=== PATIENT | female | born 2000 | race Caucasian/White ===

== ENCOUNTER → 2022-03-11 16:51 | Outpatient (CLI) | payer OTHER, SELFPAY | PROVIDERS: Visit Provider Obstetrics & Gynecology | DX: N39.0 Urinary tract infection, site not specified (principal); B96.29 Other Escherichia coli [E. coli] as the cause of diseases classified elsewhere | CPT/HCPCS: 87086; 87088; 87186 ==

== ENCOUNTER → 2022-05-23 14:14 | Outpatient (CLI) | payer OTHER, SELFPAY ==
--- NOTE | 2022-05-23 14:21 | US_ITS ---
FINAL REPORT CLINICAL HISTORY: 20 week anatomy scan FINDINGS: There is a single live intrauterine gestation. Presentation is cephalic. The cervix is closed and measures 3.1. Placenta is anterior, grade 1. movement is noted. heart rate is 147 beats per minute Three-vessel cord with satisfactory umbilical cord insertion. Four-chamber heart is noted. brain and ventricles are unremarkable. Chest and diaphragm are unremarkable. ABDOMEN: Both kidneys are unremarkable. Stomach is unremarkable. SPINE: No anomalies identified. Both arms and legs noted. AMNIOTIC FLUID: Appropriate amount. MEASUREMENTS: ULTRASOUND AGE: 20 weeks 3 days. GESTATION AGE: 20 weeks 2 days. ESTIMATED WEIGHT: 366 g GROWTH PERCENTILE: 64 % BPD: 4.72 corresponding 2 20 weeks 2 days. OFD: 6.19 cm corresponding to 20 weeks 6 days. HC: 17.29 cm corresponding to 19 weeks 6 days. AC: 15.83 cm corresponding to 21 weeks 0 days. FL: 3.33 cm corresponding to 20 weeks 3 days. CEREBELLUM: 1.98 cm corresponding to 20 weeks 2 days. HUMERUS: 3.28 cm corresponding to 20 weeks 1 day. HC/AC: 1.09 CI: 76% FL/BPD: 71% FL/AC: 21% IMPRESSION: Single living IUP with an ultrasound age of 20 weeks 3 days. Reviewed, Interpreted and Dictated by Roel Camacho III, MD Transcribed by Gertrudis Martinez Authenticated and [facility]
== END ==
PROVIDERS: PCP Obstetrics & Gynecology; Visit Provider Obstetrics & Gynecology
DX: Z34.90 Encounter for supervision of normal pregnancy, unspecified, unspecified trimester (principal); Z3A.20 20 weeks gestation of pregnancy
CPT/HCPCS: 76811

== ENCOUNTER 2022-06-04 07:03 | Outpatient (CLI) | payer OTHER, SELFPAY ==
[2022-06-04 07:40] VITALS: BP 130/77; PULSE 81; RESP 20; TEMP 36.7; O2SAT 98; BMI 42.3
[2022-06-04 07:58] LABS: Microscopic, Urine URINE MICROSCOPIC (MICROSCOPIC)
[2022-06-04 07:59] LABS: Appearance,Urine SL CLOUDY (Clear); Bilirubin,Urine Negative (Negative); Blood, Urine Negative (Negative); Color,Urine YELLOW (Yellow); Glucose,Urine (UA) Negative (Negative); Ketones,Urine 1+ (Negative); Leukocyte Esterase,Urine TRACE (Negative); Nitrate,Urine Negative (Negative); Protein,Urine Negative (Negative)
[2022-06-04 08:20] LABS: Bacteria,Urine Trace /lpf; Squamous Epithelial Cell,Urine Occasional #/hpf (0-5); WBC,Urine Occasional #/hpf (0-3)
--- NOTE | 2022-06-04 08:43 | EXP.ACUTE.PN ---
Subjective *Date: 06/04/22 *Time: 08:43 Interval history: She arrived at 7 AM this morning with severe middle low back pain. She said that she woke up in the middle the night with severe right-sided hip pain. Her said he was able to massage the hip and ease the pain on that side. She went back to sleep for about an hour and then started having severe back pain. She did take a Tylenol at home. She arrived about 7 AM this morning. Urinalysis and NST were normal. There were no contractions. Medical Exam Vital signs and Labs for Last 24 Hours: Vital Signs Temp Pulse Resp BP Pulse Ox 06/04/22 07:40 98.1 F 81 20 130/77 98 Intake and Output 06/03/22 06/04/22 06/04/22 19:59 03:59 11:59 Other: Weight 224 lb Patient Weight 06/04/22 11:59 Weight 224 lb Laboratory Results - last 24 hr 06/04/22 07:11: Urine Color Yellow, Urine Appearance Sl cloudy, Urine pH 7.0, Ur Specific [place] 1.020, Urine Protein Negative, Urine Glucose (UA) Negative, Urine Ketones 1+, Urine Blood Negative, Urine Nitrate Negative, Urine Bilirubin Negative, Urine Urobilinogen 1.0, Ur Leukocyte Esterase Trace, Urine RBC None, Urine WBC Occasional, Ur Squamous Epith Cells Occasional, Urine Bacteria Trace I & O for Labs for Last 24 Hours: Intake & Output 06/01/22 06/02/22 06/03/22 06/04/22 12:59 11:59 11:59 11:59 Weight 224 lb Head: Present atraumatic Neck: Present normal inspection Respiratory: Present normal respiratory effort GI: Present soft; Absent tenderness Assessment and Plan *Assessment and plan (1) Low back pain during : Status: Acute Category: Medical Code(s): O26.899 - Other specified related conditions, unspecified trimester; M54.50 - Low back pain, unspecified Plan I pressed on her low back and it was quite tender. I suspect she has some MSK pain. She will go home and use either a heating pad or ice packs. She will continue with her Tylenol. 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 She has an appointment in [address] Faria.
== END 2022-06-04 08:30 | disposition home or self-care (01) ==
LOC: OBOUT 07:05 → OB 07:06
PROVIDERS: Visit Provider Nurse Practitioner Obstetrics & Gynecology
DX: O26.899 Other specified pregnancy related conditions, unspecified trimester (principal); Z3A.21 21 weeks gestation of pregnancy; M54.50 Low back pain, unspecified
CPT/HCPCS: 59025; 81001

== ENCOUNTER → 2022-07-25 08:54 | Outpatient (CLI) | payer OTHER, SELFPAY ==
[2022-07-25 08:59] LABS: MANUAL DIFFERENTIAL MANUAL DIFFERENTIAL (MANUAL DIFF)
[2022-07-25 09:18] LABS: Basophils % 0.2 % (0.1-2.0); Eosinophils # 0.2 K/mm3 (0.0-0.4); Eosinophils % 1.5 % (0.1-12.0); Hematocrit 39.3 % (37.0-47.0); Lymphocytes # 2.2 K/mm3 (0.7-4.5); Lymphocytes % 22.9 % (10-50); Mean Corpuscular Hemoglobin 30.2 pg (27.0-31.2); Mean Corpuscular Volume 91.4 fl (81-99); Mean Platelet Volume 8.1 fl (7.4-10.4); Monocytes # 0.5 K/mm3 (0.1-1.0); Monocytes % 5.6 % (1.7-9.3); Neutrophils # 6.7 K/mm3 (1.8-7.8); Neutrophils % 69.7 % (37.0-80.0); Platelet Count 390 K/mm3 (142-424); Red Blood Count 4.29 M/mm3 (4.20-5.40); Red Cell Distribution Width 13.1 % (11.5-17.5); White Blood Count 9.6 K/mm3 (4.5-13.0)
[2022-07-25 09:27] LABS: Glucose,Fasting 92 mg/dl (74-100)
[2022-07-25 10:08] LABS: Eosinophils % 1 % (0-3); Lymphocytes % 27 % (10-50); Monocytes % 5 % (2-9); Neutrophils % 67 % (42-76); Platelet Estimate Normal; RBC Morphology Normal; Total Cells Counted 100
[2022-07-25 11:30] LABS: Glucose 1 Hour 142 mg/dL (74-100)
== END ==
PROVIDERS: Visit Provider Obstetrics & Gynecology
DX: Z34.90 Encounter for supervision of normal pregnancy, unspecified, unspecified trimester (principal)
CPT/HCPCS: 36415; 82951; 85007; 85014; 85018; 85048; 85049

== ENCOUNTER → 2022-08-02 08:06 | Outpatient (CLI) | payer OTHER, SELFPAY ==
[2022-08-02 08:32] LABS: Glucose,Fasting 87 mg/dl (74-100)
[2022-08-02 10:20] LABS: Glucose 1 Hour 97 mg/dL (74-100)
[2022-08-02 11:45] LABS: Glucose 2 Hour 74 mg/dL (74-100)
[2022-08-02 12:04] LABS: Glucose 3 Hour 71 mg/dL (74-100)
== END ==
PROVIDERS: Visit Provider Obstetrics & Gynecology
DX: R73.09 Other abnormal glucose (principal)
CPT/HCPCS: 36415; 82951

== ENCOUNTER 2022-09-05 11:02 | Outpatient (CLI) | payer OTHER, SELFPAY ==
[2022-09-05 11:32] VITALS: BMI 45.9
[2022-09-05 11:39] LABS: Microscopic, Urine URINE MICROSCOPIC (MICROSCOPIC)
[2022-09-05 11:45] LABS: Appearance,Urine SL CLOUDY (Clear); Blood, Urine Negative (Negative); Color,Urine YELLOW (Yellow); Glucose,Urine (UA) Negative (Negative); Ketones,Urine Negative (Negative); Leukocyte Esterase,Urine Negative (Negative); Nitrate,Urine Negative (Negative); Protein,Urine 1+ (Negative); Specific Gravity, Urine >= 1.030 (1.005-1.030)
[2022-09-05 11:49] LABS: Bilirubin,Urine 1+ (Negative)
[2022-09-05 11:54] VITALS: BP 147/92; PULSE 66; RESP 20; TEMP 36.7; O2SAT 96; BMI 45.9
[2022-09-05 11:59] LABS: Bacteria,Urine 1+ /lpf; Mucus,Urine 1+ /lpf
[2022-09-05 12:00] LABS: Amphetamine/Metha Screen,Urine Negative ng/ml (<1000); Barbiturates Screen,Urine Negative ng/ml (<200); Benzodiazepines Screen,Urine Negative ng/ml (<200); Cannabinoid Screen,Urine Positive ng/ml (<50); Cocaine Screen,Urine Negative ng/ml (<300); Methadone Screen,Urine Negative ng/ml (<300); Opiate Screen,Urine Negative ng/ml (<300); Phencyclidine Screen,Urine Negative ng/ml (<25)
== END 2022-09-05 13:25 | disposition home or self-care (01) ==
LOC: OBOUT 11:05 → OB 11:06
PROVIDERS: Visit Provider Obstetrics & Gynecology
DX: O26.893 Other specified pregnancy related conditions, third trimester (principal); Z3A.35 35 weeks gestation of pregnancy; M54.50 Low back pain, unspecified
CPT/HCPCS: 59025; 80305; 81001; 96365; 96367; G0463

== ENCOUNTER → 2022-09-13 17:00 | Outpatient (CLI) | payer OTHER, SELFPAY | PROVIDERS: Visit Provider Obstetrics & Gynecology | DX: Z34.90 Encounter for supervision of normal pregnancy, unspecified, unspecified trimester (principal) | CPT/HCPCS: 86403 ==

== ENCOUNTER 2022-09-27 12:28 | Inpatient (IN) | payer OTHER, SELFPAY ==
[2022-09-27] VITALS (12 sets, daily range): BP systolic 139–169; BP diastolic 71–109; PULSE 62–96; RESP 18–20; TEMP 36.7; O2SAT 100; BMI 43.1
[2022-09-27 10:55] LABS: Basophils # 0.1 K/mm3 (0-0.2); Basophils % 0.7 % (0.1-2.0); Eosinophils # 0.2 K/mm3 (0.0-0.4); Eosinophils % 2.6 % (0.1-12.0); Hematocrit 40.2 % (37.0-47.0); Hemoglobin 13.8 g/dL (12.2-16.2); Lymphocytes # 2.5 K/mm3 (0.7-4.5); Lymphocytes % 26.6 % (10-50); Mean Corpuscular HGB Conc 34.3 g/dL (31.8-35.4); Mean Corpuscular Volume 87.6 fl (81-99); Mean Platelet Volume 8.8 fl (7.4-10.4); Monocytes # 0.7 K/mm3 (0.1-1.0); Monocytes % 7.2 % (1.7-9.3); Platelet Count 298 K/mm3 (142-424); Red Blood Count 4.58 M/mm3 (4.20-5.40); Red Cell Distribution Width 13.2 % (11.5-17.5); White Blood Count 9.5 K/mm3 (4.8-10.8)
[2022-09-27 11:04] LABS: Aspartate Amino Transferase 26 U/L (14-36); Blood Urea Nitrogen 7 mg/dl (7-17); Calcium 8.9 mg/dl (8.4-10.2); Carbon Dioxide 21 mmol/L (22.0-30.0); Chloride 107 mmol/L (98-107); Creatinine Clearance Estimated 141 mL/min (50-200); Estimated Glomerular Filt Rate 156 ml/min (>60); GFR (African American) 188 ML/MIN (>60); Glucose 97 mg/dl (74-100); Sodium 134 mmol/L (136-145); Uric Acid 3.8 mg/dl (2.5-6.2)
[2022-09-27 11:09] LABS: D-Dimer 1.22 ug/mL (0.0-0.5)
[2022-09-27 11:40] LABS: Alanine Aminotransferase 19 U/L (12-78)
[2022-09-27 12:06] LABS: Activated Partial Thrombo Time 29.8 seconds (22.8-30.6); Fibrinogen 650 mg/dL (229.9-363.5); INR 0.85 (0.9-1.1); Prothrombin Time 9.3 seconds (10.1-12.5)
[2022-09-27 14:05] LABS: Microscopic, Urine URINE MICROSCOPIC (MICROSCOPIC)
[2022-09-27 14:12] LABS: Appearance,Urine CLEAR (Clear); Bilirubin,Urine Negative (Negative); Blood, Urine 3+ (Negative); Color,Urine YELLOW (Yellow); Glucose,Urine (UA) Negative (Negative); Ketones,Urine Negative (Negative); Leukocyte Esterase,Urine TRACE (Negative); Nitrate,Urine Negative (Negative); Protein,Urine Negative (Negative); Specific Gravity, Urine 1.015 (1.005-1.030); Urobilinogen,Urine 0.2 EU/dl (0.2)
[2022-09-27 14:19] LABS: Creatinine,Urine Random 37 mg/dL (Not Estab.)
[2022-09-27 14:22] LABS: Microalbumin/Creatinine Ratio 200.5
[2022-09-27 14:23] LABS: Amphetamine/Metha Screen,Urine Negative ng/ml (<1000); Barbiturates Screen,Urine Negative ng/ml (<200)
[2022-09-27 14:24] LABS: Bacteria,Urine Trace /lpf; Benzodiazepines Screen,Urine Negative ng/ml (<200); Cannabinoid Screen,Urine Negative ng/ml (<50); WBC,Urine Occasional #/hpf (0-3)
[2022-09-27 14:25] LABS: Cocaine Screen,Urine Negative ng/ml (<300); RBC,Urine Occasional #/hpf (0-3)
[2022-09-27 14:26] LABS: Methadone Screen,Urine Negative ng/ml (<300); Opiate Screen,Urine Negative ng/ml (<300)
[2022-09-27 14:27] LABS: Phencyclidine Screen,Urine Negative ng/ml (<25)
[2022-09-27 17:34] LABS: Coronavirus 19, PCR Not Detected (NotDetected); Influenza A, PCR Not Detected (NotDetected); Influenza B, PCR Not Detected (NotDetected)
--- NOTE | 2022-09-27 18:39 | EXP.HP ---
History of Present Illness *Admission Date: 09/27/22 *Reason for visit:: Term , -induced hypertension, maternal obesity, GBS pos *History of present illness: She is a 22-year-old 1 para 0 at 38+ weeks. She was seen in the office earlier today by Dr. Faria and found that her blood pressure was elevated. She did not have any proteinuria. Her blood pressure was significantly elevated at the 160-170/100 110 range. As result of that she is admitted and we will plan to deliver her tomorrow. We have inserted Cervidil this evening. [facility] Disclaimer: The information contained in this section may have been updated after the patient was seen, as this information can be updated by other users. Medical History GBS (group B Streptococcus carrier), +RV culture, currently Maternal obesity affecting , antepartum Tobacco use affecting , antepartum Social History Smoking Status: Current every day smoker alcohol intake: never current occupational status: unemployed Travel in the last 8 weeks: None Review of Systems Review of Systems Review of systems:: pertinent systems reviewed and negative unless documented below Meds Home Medications and Allergies Home Medications Medication Instructions Recorded Confirmed Type vit no.95-ferrous 1 tab PO DAILY Supplement 03/11/22 09/27/22 History fumarate 28 mg-folic acid 800 mcg tablet () New Prescriptions to Start Prescriptions: Allergies Allergy/AdvReac Type Severity Reaction Status Date / Time No Known Allergies Allergy Verified 09/27/22 09:27 Exam Data for Last 24 hours Vital signs and Labs for Last 24 Hours: Temp Pulse Resp BP Pulse Ox 98.1 F 77 18 151/93 H 100 09/27/22 12:47 09/27/22 12:47 09/27/22 12:47 09/27/22 12:47 09/27/22 12:47 Laboratory Results - last 24 hr 09/27/22 10:40: WBC 9.5, RBC 4.58, Hgb 13.8, Hct 40.2, MCV 87.6, MCH 30.0, MCHC 34.3, RDW 13.2, Plt Count 298, MPV 8.8, Neut % (Auto) 63.0, Lymph % (Auto) 26.6, [place] % (Auto) 7.2, Eos % (Auto) 2.6, Baso % (Auto) 0.7, Neut # (Auto) 6.0, Lymph # (Auto) 2.5, [place] # (Auto) 0.7, Eos # (Auto) 0.2, Baso # (Auto) 0.1 09/27/22 10:40: PT 9.3 L, INR 0.85 L, APTT 29.8, Fibrinogen 650 H 09/27/22 10:40: D-Dimer 1.22 H, Sodium 134 L, Potassium 4.0, Chloride 107, Carbon Dioxide 21 L, Anion Gap 10.0, BUN 7, Creatinine 0.50 L, Estimated Creat Clear 141, Estimated GFR 156, Est GFR ( Amer) 188, Glucose 97, Uric Acid 3.8, Calcium 8.9, AST 26, ALT 19 09/27/22 10:40: Blood Type O Positive, Antibody Screen Negative 09/27/22 14:00: Urine Color Yellow, Urine Appearance Clear, Urine pH 7.0, Ur Specific [place] 1.015, Urine Protein Negative, Urine Glucose (UA) Negative, Urine Ketones Negative, Urine Blood 3+, Urine Nitrate Negative, Urine Bilirubin Negative, Urine Urobilinogen 0.2, Ur Leukocyte Esterase Trace, Urine RBC Occasional, Urine WBC Occasional, Ur Squamous Epith Cells 5-10, Urine Bacteria Trace 09/27/22 14:00: Urine Creatinine 37, Urine Microalbumin 74.200 H, Microalb/Creat Ratio 200.5, Urine Opiates Screen Negative, Urine Methadone Screen Negative, Ur Barbituates Screen Negative, Ur Phencyclidine Scrn Negative, Ur Amphetamines Screen Negative, U Benzodiazepines Scrn Negative, Urine Cocaine Screen Negative, U Marijuana (THC) Screen Negative 09/27/22 17:25: SARS-CoV-2 (PCR) Not detected, Influenza A Untype (PCR) Not detected, Influenza Type B (PCR) Not detected I & O for Last 24 hours: Intake & Output 09/25/22 09/26/22 09/27/22 09/28/22 11:59 11:59 11:59 11:59 Weight 236 lb 236 lb Constitutional Constitutional: no acute distress *Routine HEENT Exam Head: Present normocephalic Eye: Present EOMI and PERRL ENT: Present mucous membranes moist *Routine Neck Exam Neck: Present supple; Absent lymphadenopathy *Routine Resp
[2022-09-28] VITALS (29 sets, daily range): BP systolic 102–188; BP diastolic 53–101; PULSE 57–88; RESP 16–20; TEMP 36.1–36.8; O2SAT 98
--- NOTE | 2022-09-28 09:12 | EXP.LABOR.NO ---
Labor Note Subjective: Date: 09/28/22 Time: 09:12 regular contraction Objective: NST:: Reactive Contractions:: every 2-3 minutes Cervical Dilation:: 4 Effacement:: 75% Station: -2 Membranes: artificially ruptured Comment:: I ruptured membranes and there was clear fluid. Fetus: Monitoring?: Yes monitoring type:: Internal Comment:: I inserted an IUPC as well as scalp clip. Assessment: Labor progressing?: Yes Cephalopelvic disproportion?: No All Active Problems induced hypertension, antepartum (Acute) GBS (group B Streptococcus carrier), +RV culture, currently (Acute) Tobacco use affecting , antepartum (Acute) Maternal obesity affecting , antepartum (Acute) Low back pain during (Acute) Screening for genetic disease carrier status (Acute) Obesity (BMI 35.0-39.9 without comorbidity) (Acute) Tobacco user (Acute) Plan: Anesthesia for epidural?: Yes Continue to labor down?: Yes Plan for ?: No Continue to monitor?: Yes Start pushing?: No Comment:: She had Cervidil placed overnight and is now on oxytocin. She has progressed from 2 to 4 cm. The cervix has thinned out. The head has come down. There was copious clear fluid when I ruptured her membranes. She now has internal monitors. We will expect a vaginal delivery.
[2022-09-28 10:16] LABS: Magnesium 2.2 mg/dl (1.6-2.3)
--- NOTE | 2022-09-28 11:50 | EXP.LABOR.NO ---
Labor Note Subjective: Date: 09/28/22 Time: 11:50 regular contraction Objective: NST:: Reactive Contractions:: every 2-3 minutes Cervical Dilation:: 6-7 Effacement:: 100% Station: -1 Membranes: artificially ruptured Fetus: Monitoring?: Yes monitoring type:: Internal Assessment: Labor progressing?: Yes Cephalopelvic disproportion?: No All Active Problems induced hypertension, antepartum (Acute) GBS (group B Streptococcus carrier), +RV culture, currently (Acute) Tobacco use affecting , antepartum (Acute) Maternal obesity affecting , antepartum (Acute) Low back pain during (Acute) Screening for genetic disease carrier status (Acute) Obesity (BMI 35.0-39.9 without comorbidity) (Acute) Tobacco user (Acute) Plan: Anesthesia for epidural?: Yes Continue to labor down?: Yes Plan for ?: No Continue to monitor?: Yes Start pushing?: No Comment:: She continues to do very well. The nonstress test is reactive. There are some early decelerations but they are irregular. The head is well down in the pelvis. There is some molding. We will expect a vaginal delivery.
--- NOTE | 2022-09-28 11:58 | EXP.ANES.CKL ---
[facility] Disclaimer: The information contained in this section may have been updated after the patient was seen, as this information can be updated by other users. Medical History GBS (group B Streptococcus carrier), +RV culture, currently Maternal obesity affecting , antepartum Tobacco use affecting , antepartum Social History (Updated 09/28/22 @ 02:10 by Juliana Cisneros RN) Smoking Status: Current every day smoker alcohol intake: never substance use type: denies use current occupational status: unemployed Travel in the last 8 weeks: None [facility] Anesthesia Checklist Patient Identification Patient Identification: Arm Band and Verbal (Name & ) Structural Data Admitted From: Inpatient Planned Operative Procedure/s: CARMINE Consent for Planned Operative Procedure(s) Verified: Yes Verified Documents: Surgical Consent NPO Status Verified Time NPO: 00:00 Chart Verification Results Verified: CBC Airway Assessment C-Spine Mobility Assessed: Yes TMJ Mobility Assessed: Yes Dentition: Good Dentition Neurological Assessment Level of Consciousness: Awake, Alert and Appropriate Anesthesia Plan Anesthesia Risk discussed: Yes ASA Class: II Anesthesia Type: Epidural
--- NOTE | 2022-09-28 13:50 | EXP.LABOR.NO ---
Labor Note Subjective: Date: 09/28/22 Time: 13:50 regular contraction Objective: NST:: Reactive Contractions:: every 2-3 minutes Cervical Dilation:: 9-10 Effacement:: 100% Station: -1 Membranes: artificially ruptured Fetus: Monitoring?: Yes monitoring type:: Internal Assessment: Labor progressing?: Yes Cephalopelvic disproportion?: No All Active Problems induced hypertension, antepartum (Acute) GBS (group B Streptococcus carrier), +RV culture, currently (Acute) Tobacco use affecting , antepartum (Acute) Maternal obesity affecting , antepartum (Acute) Low back pain during (Acute) Screening for genetic disease carrier status (Acute) Obesity (BMI 35.0-39.9 without comorbidity) (Acute) Tobacco user (Acute) Plan: Anesthesia for epidural?: Yes Continue to labor down?: Yes Plan for ?: No Continue to monitor?: Yes Start pushing?: No Comment:: She continues to progress. The baby has significant molding of the head. The head still has to come down a little farther. We will expect a vaginal delivery.
--- NOTE | 2022-09-28 15:33 | P.PCN_ITS ---
Delivery Note Delivery Date:: 09/28/22 Delivery Time:: 15:22 Anesthesia Type: Epidural Was labor medically induced?: Yes Induction method: per misoprostol protocol Gestational age (weeks): 38 Infant delivered prior to 39 weeks?: Yes Justification for early elective delivery:: Pre-eclampsia Gender: Male at 1 minute: 8 at 5 minutes: 9 LAC or MLE?: LAC Delivery Procedure:: She is a 22-year-old 1 para 0 at 38+ weeks gestational age. She was found to have increased blood pressure in the 160/100 range and as result of that she was admitted and induction was started. She had Cervidil placed overnight and then this morning had her membranes ruptured and she was started on IV oxytocin. She progressed under labor epidural to full dilation and delivered spontaneously a liveborn male child at 3:22 PM in the afternoon of September 28, 2022. On delivery the head was noted that there was a loose nuchal cord which was easily reduced. This was followed by the anterior shoulder and the rest the 's body atraumatically. The baby was vigorous so we allowed the cord to continue to pulsate for approximately 1 minute. The oropharynx and nasopharynx were bulb suction. The cord was then doubly clamped and cut and the was placed on the mother's abdomen for further care. The nurses assigned Apgars of 8 at 1 minute and 9 at 5 minutes. We then obtained cord blood. She received IV oxytocin using gentle traction on the cord and countertraction on the fundus I was able to easily deliver the placenta intact. She had a small vaginal laceration that was repaired with a single interrupted 3-0 Vicryl Rapide suture. She has O+ blood, she is rubella immune and she was group B streptococcus positive. She did receive IV antibiotics while in labor. Her encapsulator Dr. Houser. Her estimated blood loss was approximately 250 cc. Laceration:: vaginal Placental Delivery Description: Spontaneous
[2022-09-29] VITALS (11 sets, daily range): BP systolic 114–154; BP diastolic 55–87; PULSE 67–94; RESP 17–18; TEMP 36.5–36.7; O2SAT 96–100
--- NOTE | 2022-09-29 07:12 | EXP.ACUTE.PN ---
Subjective *Date: 09/29/22 *Time: 07:12 Interval history: She continues to do well this morning. She is eating and drinking and ambulating. She is bottlefeeding. Her lochia is normal. Medical Exam Vital signs and Labs for Last 24 Hours: Vital Signs Temp Pulse Resp BP BP Pulse Ox 09/29/22 06:00 127/75 09/29/22 03:20 98.1 F 86 18 139/70 98 09/29/22 02:20 142/72 H 09/29/22 01:20 115/55 L 09/29/22 00:20 114/57 L 09/28/22 23:20 106/53 L 09/28/22 22:20 102/55 L 09/28/22 21:13 138/73 09/28/22 20:23 140/70 09/28/22 19:10 164/72 H 09/28/22 18:00 148/70 H 09/28/22 17:00 153/85 H 09/28/22 16:00 142/69 H 09/28/22 15:00 146/84 H 09/28/22 14:00 157/85 H 09/28/22 13:00 88 161/95 H 09/28/22 12:00 152/80 H 09/28/22 11:00 82 156/76 H 09/28/22 10:00 71 177/94 H 09/28/22 09:55 68 156/88 H 09/28/22 09:50 70 164/84 H 09/28/22 09:45 69 178/94 H 09/28/22 09:40 57 L 188/97 H 09/28/22 09:25 60 170/96 H 09/28/22 08:10 97.8 F 75 16 142/99 H 98 09/28/22 14:05 157/85 H 09/28/22 13:40 176/95 H 09/28/22 13:40 176/95 H 09/28/22 13:20 173/101 H Laboratory Results - last 24 hr 09/27/22 10:40: Magnesium 2.2 I & O for Labs for Last 24 Hours: Intake & Output 09/26/22 09/27/22 09/28/22 09/29/22 11:59 11:59 11:59 11:59 Weight 236 lb 236 lb Head: Present atraumatic ENT: Present normal exam Neck: Present normal inspection Respiratory: Present normal respiratory effort; Absent accessory muscle use Assessment and Plan *Assessment and plan (1) induced hypertension, antepartum: Status: Acute Category: Medical Code(s): O13.9 - Gestational [-induced] hypertension without significant proteinuria, unspecified trimester (2) Normal delivery: Status: Acute Category: Medical Code(s): O80 - Encounter for full-term uncomplicated delivery Plan She is doing well this morning. Her blood pressure is normalized. She is still on magnesium sulfate and we will plan to discontinue this later on this afternoon. We will plan to deliver her tomorrow.
[2022-09-29 08:08] LABS: Hematocrit 36.4 % (37.0-47.0); Hemoglobin 12.2 g/dL (12.2-16.2)
[2022-09-29 08:51] LABS: Magnesium 5.9 mg/dl (1.6-2.3)
--- NOTE | 2022-09-29 09:40 | P.PN_ITS ---
[facility] Disclaimer: The information contained in this section may have been updated after the patient was seen, as this information can be updated by other users. Medical History GBS (group B Streptococcus carrier), +RV culture, currently Maternal obesity affecting , antepartum Tobacco use affecting , antepartum Social History (Updated 09/28/22 @ 11:59 by Nuno Orosco CRNA) Smoking Status: Current every day smoker alcohol intake: never substance use type: denies use current occupational status: unemployed Travel in the last 8 weeks: None [facility] Anesthesia Checklist Patient Identification Patient Identification: Arm Band and Verbal (Name & ) Structural Data Admitted From: Inpatient Planned Operative Procedure/s: CARMINE Consent for Planned Operative Procedure(s) Verified: Yes Verified Documents: Surgical Consent NPO Status Verified Time NPO: 00:00 Chart Verification Results Verified: CBC Airway Assessment C-Spine Mobility Assessed: Yes TMJ Mobility Assessed: Yes Dentition: Good Dentition Neurological Assessment Level of Consciousness: Awake, Alert and Appropriate Anesthesia Plan Anesthesia Risk discussed: Yes ASA Class: II Anesthesia Type: Epidural
--- NOTE | 2022-09-30 09:44 | SW/DCPLANNER ---
Addendum entered by Aurelia Robles 10/04/22 08:33: Infant cord screen is positive for THC: I have reported this to Central Intake. Addendum entered by Aurelia Robles 10/01/22 09:21: I have updated Roselyn caicedo/ Audra [facility] HANDS Dept. Addendum entered by Maria Teresa Delcid RN 09/30/22 16:07: Spoke with Danuta from [facility] and she will make sure the patient is contacted and taken care of. Addendum entered by Aurelia Robles 09/30/22 11:00: I have left a for [facility] program at this time. Original Note: I received a consult for this patient regarding: marijuana use during . Patient tested positive for marijuana on 09/05/22. Patient stated that she used THC for appetite and stopped using. Infants urine is negative. Patient delivered male (Jared Abad) on 09/28/22. Infant's father (Manjit Abad 02/07/99) is involved. Patient, Manjit and infant will reside at [address] [place] [address] in [place] [address]. Patient's contact number is [phone]. This is patient and father's first child. Patient is established with [facility] and is interested in HANDS. I will make contact with HANDS department regarding delivery. Patient stated that she has the following items at home: crib, carseat, clothing, diapers and will be bottle feeding. Patient will have transportation for all follow up appointments. Patient is expected to discharge later or tomorrow. PED MD will be Dr Nixon. OB nursing staff (Marge) stated that patient is appropriate with infant. Patient does not have any further needs/questions at this time.
--- NOTE | 2022-09-30 11:30 | EXP.DC.SUM ---
General Admission date:: 09/27/22 Discharge date: 09/30/22 HPI HPI HPI: She is a 22-year-old 1 para 0 at 38+ weeks. She was seen in the office earlier today by Dr. Faria and found that her blood pressure was elevated. She did not have any proteinuria. Her blood pressure was significantly elevated at the 160-170/100 110 range. As result of that she is admitted and we will plan to deliver her tomorrow. We have inserted Cervidil this evening. Hospital Course Hospital Course Hospital Course: She had Cervidil placed on the evening of September 27, 2022. The following morning she had her membranes ruptured. Under labor epidural she progressed to full dilation and delivered spontaneously a liveborn male child at 3:22 PM in the afternoon of September 28, 2022. Baby had Apgars of 8 at 1 and 9 at 5 minutes. He weighed 6 pounds 0 ounces. She has done well postoperatively and has remained afebrile without her hospitalization. She had magnesium sulfate for 24 hours. She is eating and drinking and ambulating. She is breast-feeding. Her lochia is normal. Her blood pressures have remained stable. We have not started her on any blood pressure medicine. She will be discharged home to follow-up with Dr. Faria in approximately 1 week's time. She will continue with her vitamins and iron. She is given the usual instructions with respect to limiting her activity, driving and sexual activity. Exam Data for Last 24 hours Vital signs and Labs for Last 24 Hours: Temp Pulse Resp BP Pulse Ox 97.7 F 81 18 136/72 96 09/29/22 16:13 09/29/22 16:13 09/29/22 16:13 09/29/22 16:13 09/29/22 16:13 I & O for Last 24 hours: Intake & Output 09/27/22 09/28/22 09/29/22 09/30/22 11:59 11:59 11:59 11:59 Weight 236 lb 236 lb Constitutional Constitutional: no acute distress *Routine Neck Exam Neck: Present supple *Routine Respiratory Exam Respiratory: Present normal respiratory effort; Absent accessory muscle use DS: Diagnosis Discharge Diagnosis (1) induced hypertension, antepartum: Status: Acute (2) Normal delivery: Status: Acute Meds Home Medications and Allergies Home Medications Medication Instructions Recorded Confirmed Type vit no.95-ferrous 1 tab PO DAILY Supplement 03/11/22 09/27/22 History fumarate 28 mg-folic acid 800 mcg tablet () New Prescriptions to Start Prescriptions: Allergies Allergy/AdvReac Type Severity Reaction Status Date / Time No Known Allergies Allergy Verified 09/27/22 09:27 Discharge Plan Disposition Patient Disposition: Home, Self-Care Discharge Order Discharge Orders: Discharge Order (Routine); Ordered 09/30/22 Ordered By: Clarke Orr Follow up Plan Follow up with: Hayde Faria DO [Staff Physician] - Enter time for follow up Prescriptions/Medication Reconciliation: Continued PNV cmb#95-ferrous fumarate-FA [] 28 mg iron- 800 mcg tablet 1 tab PO DAILY Problem Reconciliation Problems Reviewed?: Yes Patient Discharge Instructions ACTIVITY: No heavy lifting DIET: continue same diet Additional Instructions: Nothing in the vagina for 6 weeks, no heavy lifting or strenuous activity. Patient Instructions: Depression, Hemorrhage, DI for Labor and Delivery, Vaginal , DI for Pre-eclampsia, [facility] Post Discharge Instructions Providers Primary Care Provider: Provider,Referral Admit Provider: Clarke Orr Attending Provider: Clarke Orr
== END 2022-09-30 14:30 | disposition home or self-care (01) | DRG 807 ==
LOC: OBOUT 12:29 → OB 12:29
PROVIDERS: Admitting Provider Nurse Practitioner Obstetrics & Gynecology; Visit Provider Nurse Practitioner Obstetrics & Gynecology
DX: O13.4 Gestational [pregnancy-induced] hypertension without significant proteinuria, complicating childbirth (principal); Z37.0 Single live birth; Z3A.38 38 weeks gestation of pregnancy; O99.214 Obesity complicating childbirth; O99.334 Smoking (tobacco) complicating childbirth; O99.824 Streptococcus B carrier state complicating childbirth; O69.81X0 Labor and delivery complicated by cord around neck, without compression, not applicable or unspecified; O70.0 First degree perineal laceration during delivery; O14.94 Unspecified pre-eclampsia, complicating childbirth
CPT/HCPCS: 59409; 59025; 80048; 80305; 81001; 82043; 82570; 83735; 84450; 84460; 84550; 85014; 85018; 85025; 85378; 85384; 85610; 85730; 86850; 94761; C1758; C9803; G0283; J0290; J0595; U0003; U0005

== ENCOUNTER → 2023-02-12 09:00 | Outpatient (CLI) | payer OTHER, SELFPAY ==
[2023-02-15 14:19] LABS: Neisseria gonorrhoeae, NAA Negative (Negative)
== END ==
PROVIDERS: Visit Provider Obstetrics & Gynecology
DX: Z34.91 Encounter for supervision of normal pregnancy, unspecified, first trimester (principal); Z3A.11 11 weeks gestation of pregnancy
CPT/HCPCS: 87086; 87491; 87591

== ENCOUNTER → 2023-02-18 08:49 | Outpatient (CLI) | payer OTHER, SELFPAY ==
[2023-02-18 09:15] LABS: Basophils % 0.5 % (0.1-2.0); Eosinophils # 0.1 K/mm3 (0.0-0.4); Eosinophils % 1.9 % (0.1-12.0); Hematocrit 41.3 % (37.0-47.0); Hemoglobin 13.5 g/dL (12.2-16.2); Lymphocytes # 2.2 K/mm3 (0.7-4.5); Lymphocytes % 31.2 % (10-50); Mean Corpuscular HGB Conc 32.7 g/dL (31.8-35.4); Mean Corpuscular Hemoglobin 28.2 pg (27.0-31.2); Mean Corpuscular Volume 86.4 fl (81-99); Mean Platelet Volume 7.4 fl (7.4-10.4); Monocytes # 0.4 K/mm3 (0.1-1.0); Monocytes % 5.7 % (1.7-9.3); Neutrophils # 4.2 K/mm3 (1.8-7.8); Neutrophils % 60.8 % (37.0-80.0); Platelet Count 343 K/mm3 (142-424); Red Blood Count 4.78 M/mm3 (4.20-5.40); Red Cell Distribution Width 13.1 % (11.5-17.5)
[2023-02-19 12:09] LABS: HIV Screen 4th Generation wRfx Non Reactive (Non Reactive); Rapid Plasma Reagin Ab Titer Non Reactive (NonRea<1:1); Rubella Antibodies, IgG 1.18 index (Immune >0.99)
[2023-03-09 13:24] LABS: Hepatitis B Surface Antigen Negative; Hepatitis C Antibody Non Reactive
== END ==
LOC: LAB 08:50
PROVIDERS: Visit Provider Obstetrics & Gynecology
DX: Z34.91 Encounter for supervision of normal pregnancy, unspecified, first trimester (principal); Z3A.11 11 weeks gestation of pregnancy
CPT/HCPCS: 36415; 85025; 86593; 86703; 86762; 86850; 87340; 87380; G0432

== ENCOUNTER → 2023-05-16 08:53 | Outpatient (CLI) | payer OTHER, SELFPAY ==
[2023-05-16 09:30] LABS: Basophils % 0.4 % (0.1-2.0); Eosinophils # 0.1 K/mm3 (0.0-0.4); Eosinophils % 1.3 % (0.1-12.0); Hematocrit 37.1 % (37.0-47.0); Hemoglobin 13.1 g/dL (12.2-16.2); Lymphocytes # 1.9 K/mm3 (0.7-4.5); Lymphocytes % 22.6 % (10-50); Mean Corpuscular HGB Conc 35.3 g/dL (31.8-35.4); Mean Corpuscular Hemoglobin 31.6 pg (27.0-31.2); Mean Corpuscular Volume 89.6 fl (81-99); Mean Platelet Volume 8.1 fl (7.4-10.4); Monocytes # 0.4 K/mm3 (0.1-1.0); Monocytes % 5.2 % (1.7-9.3); Neutrophils % 70.6 % (37.0-80.0); Platelet Count 274 K/mm3 (142-424); Red Blood Count 4.14 M/mm3 (4.20-5.40); Red Cell Distribution Width 14.1 % (11.5-17.5); White Blood Count 8.6 K/mm3 (4.8-10.8)
[2023-05-16 09:50] LABS: Glucose,Fasting 98 mg/dl (74-100)
[2023-05-16 11:26] LABS: Glucose 1 Hour 163 mg/dL (74-100)
== END ==
PROVIDERS: Visit Provider Obstetrics & Gynecology
DX: Z3A.24 24 weeks gestation of pregnancy; O30.009 Twin pregnancy, unspecified number of placenta and unspecified number of amniotic sacs, unspecified trimester
CPT/HCPCS: 36415; 82951; 85025

== ENCOUNTER → 2023-05-23 09:06 | Outpatient (CLI) | payer OTHER, SELFPAY ==
[2023-05-23 11:13] LABS: Glucose,Fasting 116 mg/dl (74-100)
[2023-05-23 12:06] LABS: Glucose 1 Hour 218 mg/dL (74-100)
[2023-05-23 14:27] LABS: Glucose 2 Hour 129 mg/dL (74-100); Glucose 3 Hour 138 mg/dL (74-100)
== END ==
PROVIDERS: Visit Provider Obstetrics & Gynecology
DX: O24.419 Gestational diabetes mellitus in pregnancy, unspecified control (principal); R73.09 Other abnormal glucose; O30.042 Twin pregnancy, dichorionic/diamniotic, second trimester; Z3A.25 25 weeks gestation of pregnancy
CPT/HCPCS: 36415; 82951

== ENCOUNTER → 2023-07-17 07:03 | Outpatient (CLI) | payer OTHER, SELFPAY ==
[2023-07-17 22:45] LABS: Barbiturates Screen,Urine Negative ng/ml (<200)
[2023-07-17 22:47] LABS: Cocaine Screen,Urine Negative ng/ml (<300)
[2023-07-17 22:48] LABS: Methadone Screen,Urine Negative ng/ml (<300)
[2023-07-17 22:50] LABS: Opiate Screen,Urine Negative ng/ml (<300)
[2023-07-17 22:51] LABS: Phencyclidine Screen,Urine Negative ng/ml (<25)
[2023-07-17 23:02] LABS: Amphetamine/Metha Screen,Urine Negative ng/ml (<1000)
[2023-07-17 23:03] LABS: Benzodiazepines Screen,Urine Negative ng/ml (<200)
[2023-07-17 23:42] LABS: Cannabinoid Screen,Urine Negative ng/ml (<50)
== END ==
LOC: LAB.DROPOF 07-18 07:04
PROVIDERS: PCP Obstetrics & Gynecology; Visit Provider Obstetrics & Gynecology
DX: Z34.93 Encounter for supervision of normal pregnancy, unspecified, third trimester (principal); Z3A.34 34 weeks gestation of pregnancy; N39.0 Urinary tract infection, site not specified; B96.89 Other specified bacterial agents as the cause of diseases classified elsewhere
CPT/HCPCS: 80307; 87086

== ENCOUNTER 2023-08-04 10:43 | Outpatient (CLI) | payer OTHER, SELFPAY ==
[2023-08-04 11:14] VITALS: BP 145/81; PULSE 82; RESP 16; TEMP 36.7; O2SAT 96; BMI 49.8
[2023-08-04] MEDS: NIFEdipine XL 30MG TABLET 30 MG PO (11:54)
[2023-08-04 12:51] LABS: Microscopic, Urine URINE MICROSCOPIC (MICROSCOPIC)
[2023-08-04 12:53] LABS: Appearance,Urine CLEAR (Clear); Bilirubin,Urine Negative (Negative); Blood, Urine Negative (Negative); Color,Urine YELLOW (Yellow); Glucose,Urine (UA) Negative (Negative); Ketones,Urine Negative (Negative); Leukocyte Esterase,Urine 1+ (Negative); Nitrate,Urine Negative (Negative); Protein,Urine Negative (Negative); Specific Gravity, Urine 1.025 (1.005-1.030); Urobilinogen,Urine 0.2 EU/dl (0.2)
[2023-08-04 13:04] LABS: Bacteria,Urine 1+ /lpf
[2023-08-04 13:09] LABS: Amphetamine/Metha Screen,Urine Negative ng/ml (<1000); Barbiturates Screen,Urine Negative ng/ml (<200); Benzodiazepines Screen,Urine Negative ng/ml (<200); Cannabinoid Screen,Urine Negative ng/ml (<50); Cocaine Screen,Urine Negative ng/ml (<300); Methadone Screen,Urine Negative ng/ml (<300); Opiate Screen,Urine Negative ng/ml (<300); Phencyclidine Screen,Urine Negative ng/ml (<25)
[2023-08-04 13:18] LABS: Basophils % 0.4 % (0.1-2.0); Eosinophils # 0.1 K/mm3 (0.0-0.4); Hematocrit 38.7 % (37.0-47.0); Hemoglobin 13.2 g/dL (12.2-16.2); Lymphocytes # 2.2 K/mm3 (0.7-4.5); Lymphocytes % 29.1 % (10-50); Mean Corpuscular HGB Conc 34.1 g/dL (31.8-35.4); Mean Corpuscular Hemoglobin 30.2 pg (27.0-31.2); Mean Corpuscular Volume 88.5 fl (81-99); Mean Platelet Volume 9.3 fl (7.4-10.4); Monocytes # 0.4 K/mm3 (0.1-1.0); Monocytes % 5.1 % (1.7-9.3); Neutrophils # 4.9 K/mm3 (1.8-7.8); Neutrophils % 64.3 % (37.0-80.0); Platelet Count 218 K/mm3 (142-424); Red Blood Count 4.37 M/mm3 (4.20-5.40); Red Cell Distribution Width 13.6 % (11.5-17.5); White Blood Count 7.6 K/mm3 (4.8-10.8)
[2023-08-04 13:25] LABS: Alanine Aminotransferase 19 U/L (12-78); Anion Gap 6.6 mEq/L (5-15); Aspartate Amino Transferase 34 U/L (14-36); Blood Urea Nitrogen 9 mg/dl (7-17); Calcium 8.5 mg/dl (8.4-10.2); Carbon Dioxide 20 mmol/L (22.0-30.0); Chloride 110 mmol/L (98-107); Creatinine Clearance Estimated 154 mL/min (50-200); Estimated Glomerular Filt Rate 156 ml/min (>60); GFR (African American) 188 ML/MIN (>60); Glucose 114 mg/dl (74-100); Potassium 3.6 mmoL/L (3.5-5.1); Sodium 133 mmol/L (136-145); Uric Acid 4.2 mg/dl (2.5-6.2)
[2023-08-04 13:30] LABS: Activated Partial Thrombo Time 28.6 seconds (22.8-30.6); Fibrinogen 510 mg/dL (229.9-363.5); Prothrombin Time 9.8 seconds (10.1-12.5)
== END 2023-08-04 14:12 | disposition home or self-care (01) ==
LOC: OBOUT 10:45 → OB 10:45
PROVIDERS: Nurse Practitioner Obstetrics & Gynecology; Visit Provider Obstetrics & Gynecology
DX: O26.893 Other specified pregnancy related conditions, third trimester (principal); Z3A.35 35 weeks gestation of pregnancy; B96.89 Other specified bacterial agents as the cause of diseases classified elsewhere
CPT/HCPCS: 36415; 59025; 80048; 80307; 81001; 84450; 84460; 84550; 85025; 85384; 85610; 85730; 87086; G0463

== ENCOUNTER 2023-08-06 11:54 | Outpatient (CLI) | payer OTHER, SELFPAY ==
[2023-08-06 12:43] LABS: Collection Time,Urine 820 hours; Total Volume,Urine 550 mL (600-1600)
[2023-08-06 14:38] LABS: Patient Height,Urine 64 inches; Patient Weight,Urine 290 lbs
[2023-08-06 17:22] LABS: Total Protein 24 Hour,Urine 99 mg/24 hr (40-90)
[2023-08-06 17:47] LABS: Creatinine 24 Hour,Urine 391 mg/24hr (630-2500)
[2023-08-06 17:54] LABS: Creatinine,Urine Random 71 mg/dL (Not Estab.)
== END 2023-08-06 23:59 ==
LOC: LAB.DROPOF 11:54
PROVIDERS: Visit Provider Obstetrics & Gynecology
DX: O10.913 Unspecified pre-existing hypertension complicating pregnancy, third trimester (principal); O30.049 Twin pregnancy, dichorionic/diamniotic, unspecified trimester; Z3A.36 36 weeks gestation of pregnancy
CPT/HCPCS: 36415; 82575; 84155